=== PATIENT | male | born 1955 | race Caucasian/White ===

== ENCOUNTER 2021-11-24 05:43 | Day surgery (SDC) | payer OTHER, BC ==
[2021-11-22 11:55] VITALS: BMI 22.5
[2021-11-24 11:22] VITALS: BP 161/80; PULSE 70; TEMP 98.2
== END 2021-11-24 11:00 | disposition home or self-care (01) ==
LOC: JASU-ENDO 05:43
PROVIDERS: ATTEND Internal Medicine Gastroenterology
PROC: 0DBL8ZX Excision of Transverse Colon, Via Natural or Artificial Opening Endoscopic, Diagnostic (ICD-10-PCS; 2021-11-24)
PROC: 3E0H8KZ Introduction of Other Diagnostic Substance into Lower GI, Via Natural or Artificial Opening Endoscopic (ICD-10-PCS; 2021-11-24)
PROC: 0DBN8ZX Excision of Sigmoid Colon, Via Natural or Artificial Opening Endoscopic, Diagnostic (ICD-10-PCS; principal; 2021-11-24 09:00)
DX: Z12.11 Encounter for screening for malignant neoplasm of colon (principal); D12.5 Benign neoplasm of sigmoid colon; D12.3 Benign neoplasm of transverse colon; Z53.8 Procedure and treatment not carried out for other reasons
CPT/HCPCS: 88305-TC

== ENCOUNTER 2022-02-20 04:06 | Day surgery (SDC) | payer OTHER, BC ==
[2022-02-19 09:44] VITALS: BMI 21.5
[2022-02-20] MEDS ORDERED: DEXMEDETOMIDINE HCL 200 MCG/2 ML IVPB ONE (07:05)
[2022-02-20] MEDS ORDERED: ACETAMINOPHEN IVPB ONE (07:05)
[2022-02-20] MEDS ORDERED: SUGAMMADEX SODIUM 200 MG/2 ML VIAL ONE (07:11)
[2022-02-20] MEDS ORDERED: BUPIVACAINE HCL/PF 0.5% (5MG/ML) 10 ML VIAL ONE ×2 (07:32→09:35)
[2022-02-20] MEDS ORDERED: MIDAZOLAM HCL 2 MG/2 ML SINGLE DOSE VIAL ONE (07:48)
[2022-02-20] MEDS ORDERED: KETAMINE HCL 200 MG/20 ML VIAL ONE (07:49)
[2022-02-20] MEDS ORDERED: PROPOFOL 20 ML ONE (07:49)
[2022-02-20] MEDS ORDERED: ceFAZolin SODIUM 1 GM VIAL IVPB ONE (08:21)
[2022-02-20] MEDS ORDERED: BUPIVACAINE HCL/PF 0.5% (5 MG/ML) 30 ML VIAL IJ ONE ×2 (10:02)
[2022-02-20] MEDS ORDERED: ONDANSETRON 4 MG/2 ML VIAL IVPUSH PRN (10:31)
[2022-02-20 13:11] VITALS: BP 125/58; PULSE 62; TEMP 97.4
== END 2022-02-20 13:30 | disposition home or self-care (01) ==
LOC: JASU-SURG 04:06
PROVIDERS: ATTEND Surgery
PROC: 0YUA0JZ Supplement Bilateral Inguinal Region with Synthetic Substitute, Open Approach (ICD-10-PCS; principal; 2022-02-20 08:00)
DX: K40.20 Bilateral inguinal hernia, without obstruction or gangrene, not specified as recurrent (principal)
CPT/HCPCS: 94760

== ENCOUNTER 2023-02-22 05:17 | Day surgery (SDC) | payer OTHER, BC ==
[2023-02-21 11:19] VITALS: BMI 22.8
[2023-02-22 11:38] VITALS: TEMP 97.6
[2023-02-22 12:07] VITALS: RESP 15
[2023-02-22 12:09] VITALS: BP 160/75; PULSE 61
== END 2023-02-22 12:01 | disposition home or self-care (01) ==
LOC: JASU-ENDO 05:17
PROVIDERS: ATTEND Internal Medicine Gastroenterology
PROC: 0DBK8ZX Excision of Ascending Colon, Via Natural or Artificial Opening Endoscopic, Diagnostic (ICD-10-PCS; 2023-02-22)
PROC: 0DBK8ZX Excision of Ascending Colon, Via Natural or Artificial Opening Endoscopic, Diagnostic (ICD-10-PCS; principal; 2023-02-22 11:30)
DX: Z12.11 Encounter for screening for malignant neoplasm of colon (principal); D12.2 Benign neoplasm of ascending colon; K63.5 Polyp of colon; K64.8 Other hemorrhoids; Z86.010 Personal history of colon polyps; Z80.0 Family history of malignant neoplasm of digestive organs
CPT/HCPCS: 88305-TC